=== PATIENT | female | born 1945 | race Caucasian/White ===

== ENCOUNTER 2016-11-10 15:51 | Outpatient (CLI) | payer MEDICARE, BC ==
[~2016-11-10 15:51] MED LIST: ALEN70TA3; LEVO100T13
== END 2016-11-10 23:59 | disposition home or self-care (01) ==
LOC: RAD 15:51
PROVIDERS: ATTEND Family Medicine
DX: R07.1 Chest pain on breathing (principal); M41.84 Other forms of scoliosis, thoracic region; M47.894 Other spondylosis, thoracic region; M47.896 Other spondylosis, lumbar region
CPT/HCPCS: 71020-TC

== ENCOUNTER 2016-11-27 09:28 | Outpatient (CLI) | payer MEDICARE, BC ==
[2016-11-27] MEDS ORDERED: IV NS 0.9% 250 ML IV ONE (10:16)
[2016-11-27] MEDS ORDERED: CT SWABBABLE VALVE TRANS SET 1 EA INFUS.SET MC ONE (10:16)
[2016-11-27] MEDS ORDERED: IOHEXOL-300 100 ML VIAL IV ONE (10:16)
== END 2016-11-27 23:59 | disposition home or self-care (01) ==
LOC: CT 09:28
PROVIDERS: ATTEND Family Medicine
DX: N13.39 Other hydronephrosis (principal); K76.89 Other specified diseases of liver; D25.9 Leiomyoma of uterus, unspecified
CPT/HCPCS: 74178; J7050; Q9967

== ENCOUNTER 2016-12-12 09:13 | Outpatient (CLI) | payer MEDICARE, BC | END 2016-12-12 23:59 | disposition home or self-care (01) | LOC: MRI 09:13 | PROVIDERS: ATTEND Family Medicine | DX: M41.85 Other forms of scoliosis, thoracolumbar region (principal); M51.34 Other intervertebral disc degeneration, thoracic region; M48.04 Spinal stenosis, thoracic region | CPT/HCPCS: 72146-TC ==

== ENCOUNTER 2017-11-15 08:48 | Emergency (ER) | payer MEDICARE, BC ==
[~2017-11-15] VITALS: Ht 149.9 cm; Wt 58.1 kg
--- NOTE | 2017-11-15 08:48 | NUR ---
SEND BY DR RIOJAS: HYPERKALEMIA. NAD NOTED. PT AAO X4, AMB WITH STEADY GAIT. RR EVEN AND UNLABORED. PENDING MD CHAMBERLAIN.
[2017-11-15] MEDS ORDERED: CALC600T12 PO (09:14)
[2017-11-15] MEDS ORDERED: ASCO500T9 PO (09:14)
[2017-11-15] MEDS ORDERED: SERT25TA PO (09:14)
[2017-11-15] MEDS ORDERED: CHOL100044 PO (09:14)
[2017-11-15] MEDS ORDERED: CYAN100096 PO (09:14)
[2017-11-15] MEDS ORDERED: MAGN400T26 PO (09:14)
[2017-11-15] MEDS ORDERED: ATOR10TA PO (09:14)
[2017-11-15] MEDS ORDERED: LEVO75TA7 PO (09:14)
[2017-11-15] MEDS ORDERED: ASPI-1169 PO (09:14)
[2017-11-15] MEDS ORDERED: UBID100C13 PO (09:14)
[2017-11-15 09:27] LABS: BASOPHILS % (AUTO) 0.9 % (0.0-2.0); EOSINOPHILS # (AUTO) 0.2 /CMM (0.0-0.7); EOSINOPHILS % (AUTO) 3.6 % (0.0-6.0); HEMATOCRIT 40 % (33-45); HEMOGLOBIN 13.4 g/dL (11.5-14.8); LYMPHOCYTES # (AUTO) 1.7 /CMM (0.8-4.8); LYMPHOCYTES % (AUTO) 32.5 % (20.0-44.0); MEAN CORPUSCULAR HEMOGLOBIN 29 PG (26.0-33.0); MEAN CORPUSCULAR HGB CONC 34 g/dl (31.0-36.0); MEAN CORPUSCULAR VOLUME 86 fL (82-100); MONOCYTES # (AUTO) 0.5 /CMM (0.1-1.30); MONOCYTES % (AUTO) 8.7 % (2.0-12.0); NEUTROPHILS # (AUTO) 2.9 /CMM (1.8-8.9); NEUTROPHILS % (AUTO) 54.3 % (43.0-81.0); PLATELET COUNT (AUTO) 265 /CMM (150-450); RDW COEFFICIENT OF VARIATION 14.4 (11.5-15.0); RED BLOOD CELL COUNT(AUTO) 4.61 MIL/uL (4.0-5.2); WHITE BLOOD COUNT (AUTO) 5.3 K/uL (4.3-11.0)
[2017-11-15 09:37] LABS: CALCIUM, SERUM 9.4 mg/dL (8.5-10.1); CARBON DIOXIDE 28 mmol/L (21-32); CHLORIDE 104 mmol/L (98-107); CREATININE 0.9 mg/dL (0.6-1.3); GLUCOSE 108 mg/dL (74-106); POTASSIUM 3.7 mmol/L (3.5-5.1); SODIUM SERUM 140 mmol/L (136-145); UREA NITROGEN, BLOOD 14 mg/dL (7-18)
[2017-11-15 09:39] LABS: INR 0.98 (0.87-1.13)
[2017-11-15 09:43] LABS: ALANINE AMINOTRANSFERASE 37 U/L (12-78); ALBUMIN 3.9 g/dL (3.4-5.0); ALKALINE PHOSPHATASE 59 U/L (46-116); ASPARTATE AMINOTRANSFERASE 23 U/L (15-37); BILIRUBIN,DIRECT 0.1 mg/dL (0.0-0.2); BILIRUBIN,TOTAL 0.6 mg/dL (0.2-1.0); TOTAL PROTEIN, SERUM 7.4 g/dL (6.4-8.2)
[2017-11-15 09:44] LABS: TROPONIN I < 0.017 ng/mL (0.00-0.056)
[2017-11-15 09:57] VITALS: BP 123/74
== END 2017-11-15 09:59 | disposition home or self-care (01) ==
LOC: ER 08:52
DX: E87.5 Hyperkalemia (principal); M81.0 Age-related osteoporosis without current pathological fracture; Z79.82 Long term (current) use of aspirin; Z88.0 Allergy status to penicillin; Z88.2 Allergy status to sulfonamides; Z88.5 Allergy status to narcotic agent
CPT/HCPCS: 36415; 71045; 80048; 80076; 84484; 85025; 85730; 93005; 99285; A4606; Z7610